=== PATIENT | female | born 1960 | race Caucasian/White ===

== ENCOUNTER 2018-10-08 11:11 | Emergency (ER) | payer BC ==
[2018-10-08] MEDS ORDERED: Fluorescein 0.6 MG Ophth Strip EYEBOTH ONE (11:34)
[2018-10-08] MEDS ORDERED: Proparacaine 0.5% Ophth Soln 15 ML Bottle EYELF ONE (11:52)
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
[2018-10-08] MEDS ORDERED: Erythromycin Base 0.5% Ophth Oint 1 GM Tube EYEBOTH ONE (12:08)
[2018-10-08] MEDS ORDERED: Lactated Ringers 1,000 ML IRR ONE (12:12)
== END 2018-10-08 12:25 | disposition home or self-care (01) ==
LOC: JD.ED 11:11
DX: H57.89 Other specified disorders of eye and adnexa (principal); Z77.098 Contact with and (suspected) exposure to other hazardous, chiefly nonmedicinal, chemicals; Z79.899 Other long term (current) drug therapy
CPT/HCPCS: 99283; A9270; J7120

== ENCOUNTER 2025-06-25 07:13 | Day surgery (SDC) | payer MEDICARE, OTHER ==
[~2025-06-25 07:13] MED LIST: Lactated Ringers 1,000 ML IV SCH; Sodium Chloride 0.9% 10 ML Syringe FLUSH PRN; Sodium Chloride 0.9% 10 ML Syringe FLUSH SCH
[2025-06-25] MEDS: Lactated Ringers 1,000 ML IV SCH (07:40)
[2025-06-25] MEDS ORDERED: Propofol 200 MG/20 ML SDV ONE (08:40)
[2025-06-25] MEDS ORDERED: fentaNYL 100 MCG/2 ML SDV ONE (09:00)
== END 2025-06-25 09:50 | disposition home or self-care (01) ==
LOC: JD.SDS 07:13
PROVIDERS: ATTEND Surgery
DX: Z12.11 Encounter for screening for malignant neoplasm of colon (principal); E03.9 Hypothyroidism, unspecified; Z86.0101 Personal history of adenomatous and serrated colon polyps; Z80.0 Family history of malignant neoplasm of digestive organs; Z79.890 Hormone replacement therapy
CPT/HCPCS: G0105; J2003; J2704; J3010; J7120